=== PATIENT | female | born 1985 | race Caucasian/White ===

== ENCOUNTER 2017-12-25 17:08 | Observation (INO) | payer SELFPAY ==
[~2017-12-25] VITALS: Ht 157.5 cm; Wt 81.6 kg
[2017-12-25] MEDS ORDERED: PNV1TABL76 MT (18:02)
== END 2017-12-25 18:10 | disposition home or self-care (01) ==
LOC: L&D 17:08
PROVIDERS: ADMIT Obstetrics & Gynecology; ATTEND Obstetrics & Gynecology
DX: O26.892 Other specified pregnancy related conditions, second trimester (principal); R10.10 Upper abdominal pain, unspecified; Z3A.22 22 weeks gestation of pregnancy
CPT/HCPCS: G0378

== ENCOUNTER 2017-12-25 18:20 | Emergency (ER) | payer SELFPAY ==
[~2017-12-25] VITALS: Ht 154.9 cm; Wt 82.0 kg
[~2017-12-25 18:20] MED LIST: PNV1TABL76 MT
[2017-12-25 19:36] VITALS: BP 116/60
== END 2017-12-25 21:00 | disposition left against medical advice (07) ==
LOC: ER 20:12
DX: Z53.21 Procedure and treatment not carried out due to patient leaving prior to being seen by health care provider (principal)